=== PATIENT | male | born 1930 | race Two or more races ===

== ENCOUNTER 2017-02-16 06:27 | Day surgery (SDC) | payer OTHER ==
[~2017-02-16] VITALS: Ht 152.4 cm; Wt 68.9 kg
[2017-02-16] VITALS (10 sets, daily range): BP systolic 119–143; BP diastolic 46–79
[2017-02-16] MEDS: Gatifloxacin Opth Solution 0.5% LEFT EYE SCH ×3 (06:00→06:10)
[~2017-02-16 06:27] MED LIST: Phenylephrine 2.5% Op Soln LEFT EYE SCH; Tropicamide 1% Opth Soln LEFT EYE SCH
[2017-02-16] MEDS ORDERED: Dexamethasone 4mg/ml vial ONE (07:22)
[2017-02-16] MEDS ORDERED: Lidocaine 1% MPF 10mg/ml 5ml ONE (07:22)
[2017-02-16] MEDS ORDERED: BSS 500ml btl ONE (07:22)
[2017-02-16] MEDS ORDERED: EPINEPHrine 1mg/1ml Amp ONE (07:23)
[2017-02-16] MEDS ORDERED: BSS 15ml BTL ONE (07:23)
[2017-02-16] MEDS ORDERED: Sodium Hyaluronate 14 mg/ml 0.85ml ONE (07:23)
[2017-02-16] MEDS ORDERED: Povidone-Iodine 5% opth solution ONE (07:23)
[2017-02-16] MEDS ORDERED: Gatifloxacin Opth Solution 0.5% ONE (07:41)
[2017-02-16] MEDS ORDERED: Tobradex Opth Susp 2.5ml ONE (07:41)
[2017-02-16] MEDS ORDERED: Akten 3.5% 1ml Btl ONE (07:44)
--- NOTE | 2017-02-16 07:45 | Pre-Procedure Note/Attestation ---
Pre-Procedure Note/Attestation Complete Prior to Procedure Planned Procedure: left Procedure Narrative: secondary lens implant left eye Indications for Procedure Pre-Operative Diagnosis: aphakia left eye Attestation I attest that I discussed the nature of the procedure; its benefits; risks and complications; and alternatives (and the risks and benefits of such alternatives ), prior to the procedure, with the patient (or the patient's legal ict sales representative). I attest that, if there was a reasonable possibility of needing a blood transfusion, the patient (or the patient's legal ict sales representative) was given the [facility] standardized written summary, pursuant to the Hugo Lobo Blood Safety Act ([place] Health and Safety Code # 1645, as amended). I attest that I re-evaluated the patient just prior to the surgery and that there has been no change in the patient's H&P, except as documented below: DESTINEY SUH February 16, 2017 07:45
[2017-02-16] MEDS ORDERED: ATENOLOL25 MG ORAL (07:53)
[2017-02-16] MEDS ORDERED: ASPIR 8181 MG ORAL (07:53)
[2017-02-16] MEDS ORDERED: [UNRECOGNIZED DRUG - REMARK] OPHTHALM (07:56)
[2017-02-16] MEDS ORDERED: cholesterol pill PO (07:56)
[2017-02-16] MEDS: Akten 3.5% 1ml Btl LEFT EYE SCH ×3 (07:57→08:16)
[2017-02-16] MEDS: Tobradex Opth Susp 2.5ml LEFT EYE SCH ×3 (08:00→08:16)
[2017-02-16] MEDS ORDERED: NS Irrig 1000ml ONE (08:30)
[2017-02-16] MEDS ORDERED: Sterile Water Irrig 1000ml IRRIG ONE (08:30)
[2017-02-16] MEDS ORDERED: fentaNYL 100 mcg/2 mL IV ONE (08:30)
[2017-02-16] MEDS ORDERED: LR 1000ml ONE (08:30)
[2017-02-16] MEDS ORDERED: Midazolam 2mg/2ml Inj ONE (08:30)
[2017-02-16] MEDS ORDERED: Propofol 10mg/ml 20ml IV ONE (08:30)
[2017-02-16] MEDS ORDERED: Esmolol 100mg/10ml Inj ONE ×2 (08:30)
[2017-02-16] MEDS ORDERED: Carbachol 0.01% Op Soln 1.5ml vial ONE (09:52)
[2017-02-16] MEDS ORDERED: acetaZOLAMIDE 500mg Inj ONE (10:04)
--- NOTE | 2017-02-16 10:12 | Brief Operative Note ---
Immediate Post Operative Note Operative Note Pre-op Diagnosis: aphakia left eye Procedure: secondary lens implant left eye Post-op Diagnosis: same as pre-op Surgeon: destiney villa Integrity Engineer: none Anesthesiologist: shilpa quevedo crna Anesthesia: MAC Specimen: none Complications: none Condition: stable Estimated Blood Loss: none Drains: none Implant(s) used?: Yes DESTINEY VILLA February 16, 2017 10:12
--- NOTE | 2017-02-16 10:28 | Immediate Post-Op Evaluation ---
Immediate Post-Op Evalulation Immediate Post-Op Evalulation Procedure: secondary dean left eye Date of Evaluation: February 16, 2017 Time of Evaluation: 10:28 Blood Pressure Systolic: 128 Blood Pressure Diastolic: 65 Pulse Rate: 70 Respiratory Rate: 14 O2 Sat by Pulse Oximetry: 100 Temperature (Fahrenheit): 97.5 Nausea: No Vomiting: No Complications none Patient Status: awake, patent Hydration Status: adequate Drug: none BEAR MCDERMOTT CRNA February 16, 2017 10:28
[2017-02-16] MEDS ORDERED: fentaNYL 100 mcg/2 mL IV PRN (10:30)
--- NOTE | 2017-02-16 10:30 | Anethesia Preoperative Eval ---
Anesthesia Pre-op PMH/ROS General Date of Evaluation: February 16, 2017 Time of Evaluation: 10:29 Anesthesiologist: sae ASA Score: ASA 3 Mallampati Score Class I : Soft palate, uvula, fauces, pillars visible Class II: Soft palate, uvula, fauces visible Class III: Soft palate, base of uvula visible Class IV: Only hard plate visible Mallampati Classification: Class III Surgeon: daisy Diagnosis: cataract Surgical Procedure: secondary lens left eye Anesthesia History: none Family History: no anesthesia problems Allergies: Coded Allergies: ACETAMINOPHEN (Verified Allergy, Unknown, 02/15/17) HYDROCODONE (Verified Allergy, Unknown, 02/15/17) NAPROXEN (Verified Allergy, Unknown, 02/15/17) Medications: see eMAR Past Medical History Cardiovascular: Reports: CAD, HTN, SD, arrhythmia Pulmonary: Denies: COPD, ISAURA, asthma, other Gastrointestinal/Genitourinary: Denies: CRI, ESRD, GERD, other Neurologic/Psychiatric: Denies: CVA, TIA, dementia, depression/anxiety, other HEENT: Reports: cataract (L), cataract (R) Hematology/Immune: Denies: DVT, anemia, bleeding disorder, other Musculoskeletal/Integumentary: Denies: DDD, DJD, OA, RA, edema, other PSxH Narrative: cabg Anesthesia Pre-op Phys. Exam Physician Exam Last Vital Signs Date Time Temp Pulse Resp B/P Pulse Ox O2 Delivery O2 Flow Rate FiO2 02/16/17 10:20 88 12 119/48 100 Nasal Cannula 3.0 02/16/17 10:15 97.4 Constitutional: NAD Neurologic: CN 2-12 intact, other - language barrier? Cardiovascular: RRR Respiratory: CTA Gastrointestinal: S/NT/ND Airway Exam Mallampati Classification 3 Mallampati Score: Class III ROM: full Dentures: no lower, no upper Anesthesia Pre-op A/P Studies Pre-op Studies: EKG - sr with qwave/pac Risk Assessment & Plan Assessment: denies chest vinny/sob Plan: mac Status Change Before Surgery: No Pre-Antibiotics Drug: none BEAR MCDERMOTT CRNA February 16, 2017 10:30
--- NOTE | 2017-02-16 10:50 | 48 Hour Post Anesthesia Eval ---
Post Anesthesia Evaluation Procedure: secondary dean left eye Date of Evaluation: February 16, 2017 Time of Evaluation: 10:49 Blood Pressure Systolic: 128 0: 70 Pulse Rate: 75 Respiratory Rate: 14 O2 Sat by Pulse Oximetry: 100 Airway: patent Nausea: No Vomiting: No Hydration Status: adequate Cardiopulmonary Status: stable Mental Status/LOC: patient returned to baseline Post-Anesthesia Complications: none Follow-up care needed: N/A BEAR MCDERMOTT CRNA February 16, 2017 10:50
[2017-02-16] MEDS ORDERED: Acetaminophen 500mg (ES) tab ORAL ONE (12:30)
--- NOTE | 2017-02-16 20:15 | Operative Note - Dictated ---
DATE OF OPERATION: 02/16/2017 PREOPERATIVE DIAGNOSIS: Aphakia, left eye. POSTOPERATIVE DIAGNOSIS: Aphakia, left eye. PROCEDURE: Secondary lens implant, left eye. SURGEON: Slava Machado M.D. ([facility] [place]) MANAGER INTEL: None. ANESTHESIA: MAC/topical. ANESTHESIOLOGIST: Rosa Isela Galloway CRNA. INDICATION FOR PROCEDURE: Poor vision, left eye. DESCRIPTION OF FINDINGS: Aphakia, left eye. DESCRIPTION OF PROCEDURE: The patient received a topical anesthetic block consisting of 3.5% Akten eyedrops. The eye was then prepped and draped in usual manner. A lid speculum was placed. An operating Zeiss microscope was positioned. A temporal corneal groove was made with the flor blade. A SuperSharp blade made a stab incision at the 6 o'clock position. A 0.1 mL of 1% nonpreserved intracameral lidocaine was injected. Miostat was instilled for miosis. Healon was instilled into the anterior chamber. A 2.5/2.8 mm trapezoidal flor blade was used to complete the temporal corneal wound. A lens glide was placed into the anterior chamber through temporal wound. An Tip anterior chamber lens, model MTA3U, power 20.0 diopter, serial number [id number] was removed from the packaging and then placed in the anterior chamber with long Moore forceps. The lens glide was removed. the trainling haptic was placed into the temporal angle. Two interrupted 10-0 Vicryl sutures were placed through the temporal wound. The peripheral iridotomy was then performed with a Vannas Scissor and 0.12 forceps. The Healon was irrigated with BSS on a cannula. Two interrupted sutures were then tied permanently. The lens was checked and found to be in good position. Anterior chamber is deep. The temporal wound was checked and found to be watertight. The lid speculum was removed and a drop of TobraDex and Zymaxid was placed. A clear plastic shield was taped over the eye. The patient tolerated the procedure well and left the operating room in good condition. Slava Machado M.D. ([facility] [place]) DR: Akshat JOB#: [id number] CC: CASEY
== END 2017-02-16 12:55 | disposition home or self-care (01) ==
LOC: SUR 06:27
DX: H27.02 Aphakia, left eye (principal); H35.3120 Nonexudative age-related macular degeneration, left eye, stage unspecified; H40.1423 Capsular glaucoma with pseudoexfoliation of lens, left eye, severe stage; I25.118 Atherosclerotic heart disease of native coronary artery with other forms of angina pectoris; Z95.1 Presence of aortocoronary bypass graft; I65.23 Occlusion and stenosis of bilateral carotid arteries; I25.2 Old myocardial infarction; E78.5 Hyperlipidemia, unspecified; I12.9 Hypertensive chronic kidney disease with stage 1 through stage 4 chronic kidney disease, or unspecified chronic kidney disease; N18.3 Chronic kidney disease, stage 3 (moderate); I70.219 Atherosclerosis of native arteries of extremities with intermittent claudication, unspecified extremity; H90.5 Unspecified sensorineural hearing loss; M54.16 Radiculopathy, lumbar region; M19.90 Unspecified osteoarthritis, unspecified site; I71.4 Abdominal aortic aneurysm, without rupture; I47.1 Supraventricular tachycardia; Z86.718 Personal history of other venous thrombosis and embolism; Z87.891 Personal history of nicotine dependence; Z88.6 Allergy status to analgesic agent; Z88.5 Allergy status to narcotic agent
CPT/HCPCS: 66985; J0171; J0360; J1100; J1120; J2250; J2704; J3010; J7120; V2632; 94003; 94150